=== PATIENT | female | born 1995 | race Caucasian/White ===

== ENCOUNTER 2022-04-27 18:11 | Emergency (ER) | payer MEDICAID, OTHER ==
[~2022-04-27] VITALS: Ht 165.1 cm; Wt 116.0 kg
[2022-04-27] MEDS ORDERED: IBUPROFEN 400MG TABLET PO ONE (19:15)
[2022-04-27] MEDS ORDERED: ACETAMINOPHEN 325MG TABLET PO ONE (20:00)
[2022-04-27] MEDS ORDERED: KETOROLAC 30MG/ML VIAL IM ONE (20:15)
[2022-04-27 20:27] VITALS: BP 125/71
== END 2022-04-27 21:13 | disposition home or self-care (01) ==
LOC: ER 18:11
DX: M25.562 Pain in left knee (principal)
CPT/HCPCS: 73562; 81025; 96372; 99283; J1885; L1830; Z7610